=== PATIENT | female | born 1965 | race Asian ===

== ENCOUNTER → 2018-10-21 | Outpatient (CLI) | payer MEDICAID ==
[~2018-10-21] MED LIST: REGADENOSON 0.4 MG/5 ML SYRINGE ONE
== END | disposition home or self-care (01) ==
LOC: CFH 13:02
PROVIDERS: ATTEND Internal Medicine Cardiovascular Disease
DX: R07.89 Other chest pain (principal)
CPT/HCPCS: 78452; 93017; A9502; J2785